=== PATIENT | female | born 1990 | race Caucasian/White ===

== ENCOUNTER 2017-01-23 17:28 | Emergency (ER) | payer OTHER ==
[~2017-01-23] VITALS: Ht 165.1 cm; Wt 68.9 kg
[2017-01-23 17:42] VITALS: BP 117/87
[2017-01-23] MEDS ORDERED: CYCLOBENZAPRINE HCL 10 MG TAB PO ONE (21:15)
== END 2017-01-23 21:14 | disposition home or self-care (01) ==
LOC: ER 17:36
DX: M54.9 Dorsalgia, unspecified (principal); M79.1 Myalgia; F43.10 Post-traumatic stress disorder, unspecified; J45.909 Unspecified asthma, uncomplicated; Z79.82 Long term (current) use of aspirin

== ENCOUNTER 2017-02-20 10:45 | Emergency (ER) | payer OTHER ==
[~2017-02-20] VITALS: Ht 165.1 cm; Wt 67.6 kg
[2017-02-20 10:48] VITALS: BP 123/75
[2017-02-20] MEDS ORDERED: KETOROLAC TROMETH 60MG/2ML VIAL IM ONE (12:00)
== END 2017-02-20 12:20 | disposition home or self-care (01) ==
LOC: ER 10:48
DX: G89.29 Other chronic pain (principal); M54.5 Low back pain; R20.0 Anesthesia of skin; Z88.6 Allergy status to analgesic agent; Z88.8 Allergy status to other drugs, medicaments and biological substances
CPT/HCPCS: 96372; 99283; J1885